=== PATIENT | male | born 1950 | race Caucasian/White ===

== ENCOUNTER 2016-08-01 08:35 | Day surgery (SDC) | payer BC ==
[~2016-08-01 08:35] MED LIST: ADVAIR 25028 BLISTE1 INH; ALEVE220 M4 PO; CINNAMON PO; FISH OIL 1,0001 EAC8 PO; GLYBURIDE5 M1 PO; LANTUS SOL100 UNIT/1 SC; METFORMIN HCL500 M2 PO; MULTI VITAMIN1 EAC2 PO; ZOCOR40 M1 PO; ZYRTEC10 M7 PO
== END 2016-08-01 14:20 ==
LOC: SHSB 08:35 → ORW 10:20 → PACU 11:39 → SHSB 12:15
PROC: 0YU60JZ Supplement Left Inguinal Region with Synthetic Substitute, Open Approach (ICD-10-PCS; principal; 2016-08-01)
DX: K40.90 Unilateral inguinal hernia, without obstruction or gangrene, not specified as recurrent (principal); I10 Essential (primary) hypertension; E11.9 Type 2 diabetes mellitus without complications; J45.909 Unspecified asthma, uncomplicated; M19.90 Unspecified osteoarthritis, unspecified site; Z98.890 Other specified postprocedural states; Z79.899 Other long term (current) drug therapy
CPT/HCPCS: C1781; C9290; J0690; J2765